=== PATIENT | male | born 1990 | race Caucasian/White ===

== ENCOUNTER 2017-06-13 16:47 | Emergency (ER) | payer OTHER ==
[2017-06-13 16:53] VITALS: BP 140/84; PULSE 97; RESP 17; O2SAT 96
--- NOTE | 2017-06-13 17:05 | EDPHY ---
General Narrative: CHIEF COMPLAINT: Left leg pain HISTORY OF PRESENT ILLNESS: Patient complains of left calf pain that started approximately 1 week ago. It is located in the left calf. Radiates up and down the leg. It is moderate to severe when ambulatory. It worsens with dorsiflexion of the left foot. Some improvement rest. No numbness or tingling. The pain does extend up into the left popliteal fossa. No redness. No edema. No warmth. No paresthesia. No paralysis. No cold sensation to the foot. He participates in triathlons and CrossFit exercise. He has been able to exercise, but limited due to the pain. He was 1st seen on Monday when the pain began to worsen. The urgent care he presented to examined him but performed no imaging or ultrasound. He did fly to [place] the week preceding the pain. No shortness of breath of any kind at any time. No other associated complaints or modifying factors. ESTABLISHED ORTHOPEDIST: None REVIEW OF SYSTEMS: Ten systems reviewed and are negative unless otherwise noted in the HPI PAST MEDICAL HISTORY: None SOCIAL HISTORY: Nonsmoker. Occasional alcohol. Works as a software programmer. FAMILY HISTORY: EXAMINATION: General Appearance: Alert, no distress Cardiovascular: Pulses normal throughout with symmetric DP pulses 2+. Symmetric PT pulses 2+. Symmetric warmth to both feet. Neurological: A&O, sensory symmetric, lower extremity strength symmetric. No footdrop Skin: Warm and dry, no rash. No erythema or cellulitis. Extremities: Tenderness of the left calf. No palpable cord. There is pain with passive dorsiflexion of the left ankle. Range of motion of lower extremities symmetric. Psychiatric: Mood and affect normal DIFFERENTIAL DIAGNOSES: Including but not limited to muscle spasm, strain, sprain, DVT, rhabdo, fracture MDM: 5:05 p.m. Left calf pain 8 days duration. Examination does not suggest DVT, but he did fly to [place] the week preceding the pain. He also participates in cross fit exercise and triathlons, thus I will proceed with DVT and rhabdomyolysis rule out. He is in no acute distress. He is neuro intact. No bony tenderness of the leg,, but he expresses concern for stress fracture, thus I have ordered an x-ray of the tib-fib. 5:55 p.m. Contacted by radiologist Dr. Hamlin. He is positive for acute DVT in the left popliteal vein, the veins of the calf. No involvement of the femoral veins. I will discuss with Dr. Reese. 6:05 p.m. I have re-evaluated the patient. After discussing with Dr. Reese, we agree that the patient is a good candidate for Xarelto. I discussed this with the patient he agrees to proceed. I reaffirmed that he has had no chest pain or shortness of breath as well. Xarelto ordered. 6:45 p.m. Coag studies are negative. CBC unremarkable. CK negative. I have re- evaluated the patient. I reaffirmed that he is comfortable with the treatment plan. We discussed pain medication. We discussed short duration of ambulation with crutches. We also discussed light activity but to refrain from returning to his vigorous exercise regimen until cleared by his primary care physician. We also discussed return to emergency department precautions for any chest pain or shortness of breath. He is stable for discharge with no chest pain at this time. SUPERVISION: This patient was independently evaluated without direct involvement of or examination by the attending physician. ED Precautions: Worsening pain. Erythema, edema, cyanosis, pallor, paresthesia or anesthesia. - Diagnostics Imaging Results: Imaging Impressions Extremity Venous Study 06/13/17 17:05 Impression: Positive deep venous thrombosis involving the left popliteal vein and calf veins. Findings and recommendations discussed with Emergency Department physician, Zen Ovalles PAC at 17:54 hour, 06/13/2017. Final report concurs with initial preliminary interpretation. Tibia/Fibula X-Ray 06/13/17 17:11 Impression: Negative for osseous abnormality. - History Smoking Status: Never smoked - Objective Vital Signs: Initial Vital Signs Temperature (C) 97.9 F 06/13/17 16:50 Heart Rate 97 06/13/17 16:50 Respiratory Rate 17 06/13/17 16:50 Blood Pressure 140/84 H 06/13/17 16:50 O2 Sat (%) 96 06/13/17 16:50 O2 Delivery Mode Room Air Allergies/Adverse Reactions: No Known Allergies Allergy (Verified 06/13/17 16:48) Home Medications: Medication Instructions Recorded Rivaroxaban [Xarelto 15mg (*)] 15 mg PO DAILY #41 tab 06/13/17 oxyCODONE HCL/ACETAMINOPHEN 1 each PO Q4-6PRN PRN #15 tablet 06/13/17 [Percocet 5-325 mg Tablet] Laboratory Results: Laboratory Results 06/13/17 17:25 06/13/17 06/13/17 06/13/17 18:10 17:59 17:25 PT 13.7 SEC SEC (12.0-15.0) INR 1.03 (0.83-1.16) APTT 29.7 SEC SEC (23.0-38.0) Sodium 142 mEq/L mEq/L (134-144) Potassium 4.2 mEq/L mEq/L (3.5-5.2) Chloride 105 mEq/L mEq/L (97-110) Carbon Dioxide 22 mEq/l mEq/l (22-31) Anion Gap 15 mEq/L mEq/L (8-16) BUN 19 mg/dL mg/dL (7-23) Creatinine 1.2 mg/dL mg/dL (0.7-1.3) Estimated GFR > 60 Glucose 111 mg/dL H mg/dL (70-100) Calcium 9.9 mg/dL mg/dL (8.5-10.4) Creatine Kinase 144 IU/L IU/L (0-224) Urine Color YELLOW Urine Appearance CLEAR Urine pH 5.0 (5.0-7.5) Ur Specific [place] 1.019 (1.002-1.030) Urine Protein NEGATIVE (NEGATIVE) Urine Ketones NEGATIVE (NEGATIVE) Urine Blood NEGATIVE (NEGATIVE) Urine Nitrate NEGATIVE (NEGATIVE) Urine Bilirubin NEGATIVE (NEGATIVE) Urine Urobilinogen NEGATIVE EU EU (0.2-1.0) Ur Leukocyte Esterase NEGATIVE (NEGATIVE) Urine RBC 1-3 /hpf /hpf (0-3) Urine WBC NONE SEEN /hpf /hpf (0-3) Ur Epithelial Cells NONE SEEN /lpf /lpf (NONE-1+) Urine Mucus TRACE /lpf /lpf (NONE-1+) Urine Glucose NEGATIVE (NEGATIVE) Medications Given: Discontinued Medications Rivaroxaban (Xarelto) 15 mg PO EDNOW ONE Stop: 06/13/17 17:58 Last Admin: 06/13/17 18:28 Dose: 15 mg Departure - Departure Disposition: Home, Routine, Self-Care Clinical Impression: Deep venous thrombosis (DVT) of left peroneal vein, Acute DVT of left tibial vein Deep venous thrombosis of left popliteal vein Qualifiers: Chronicity: acute Qualified Code(s): I82.432 - Acute embolism and thrombosis of left popliteal vein Condition: Good Instructions: Deep Venous Thrombosis (ED) Additional Instructions: 1. Light activity until seen by primary care physician 2. No massage to the leg or immobilization of the leg 3. Contact the on-call primary care physician as provided for outpatient follow- up 4. Return to emergency department for any chest pain of any kind or any shortness of breath of any kind Referrals: Wilfredo Diaz MD [[facility] [place] Primary Care Provider] - As per Instructions Prescriptions: oxyCODONE HCL/ACETAMINOPHEN [Percocet 5-325 mg Tablet] 1 each PO Q4-6PRN PRN # 15 tablet PRN Reason: Pain, Breakthrough Rivaroxaban [Xarelto 15mg (*)] 15 mg PO DAILY #41 tab
[2017-06-13 17:49] LABS: ANION GAP 15 mEq/L (8-16); CALCIUM 9.9 mg/dL (8.5-10.4); CARBON DIOXIDE 22 mEq/l (22-31); CHLORIDE 105 mEq/L (97-110); CREATININE 1.2 mg/dL (0.7-1.3); GLOMERULAR FILTRATION RATE > 60; GLUCOSE 111 mg/dL (70-100); POTASSIUM 4.2 mEq/L (3.5-5.2); SODIUM 142 mEq/L (134-144)
[2017-06-13] MEDS ORDERED: RIVAROXABAN 15 MG TAB PO ONE (17:57)
[2017-06-13 18:33] LABS: COLOR YELLOW; LEUKOCYTE ESTERASE,URINE NEGATIVE (NEGATIVE); NITRITE,URINE NEGATIVE (NEGATIVE)
[2017-06-13 18:34] LABS: MUCUS TRACE /lpf (NONE-1+)
[2017-06-13 18:37] LABS: WBC,URINE NONE SEEN /hpf (0-3)
[2017-06-13 18:40] LABS: INR 1.03 (0.83-1.16); PROTIME(PATIENT) 13.7 SEC (12.0-15.0)
[2017-06-13 18:41] LABS: APTT 29.7 SEC (23.0-38.0)
[2017-06-13 19:07] VITALS: TEMP 98.2
== END 2017-06-13 19:15 | disposition home or self-care (01) ==
DX: I82.432 Acute embolism and thrombosis of left popliteal vein (principal); I82.442 Acute embolism and thrombosis of left tibial vein; I82.492 Acute embolism and thrombosis of other specified deep vein of left lower extremity; Z79.01 Long term (current) use of anticoagulants

== ENCOUNTER 2017-06-15 09:33 | Observation (INO) | payer OTHER ==
--- NOTE | 2017-06-15 09:44 | CPEKG ---
Heart Rate: 91 RR Interval: 659 P-R Interval: 156 QRSD Interval: 82 QT Interval: 332 QTC Interval: 409 P [place]: 76 QRS [place]: 74 EKG Severity - BORDERLINE ECG - EKG Impression: SINUS RHYTHM EKG Impression: BORDERLINE T ABNORMALITIES, DIFFUSE LEADS Electronically Signed By: Surjit Burns 16-Jun-2017 20:35:27
[2017-06-15] MEDS ORDERED: NS 1,000 ML IV ONE (09:47)
--- NOTE | 2017-06-15 09:50 | EDPHY ---
General Narrative: CHIEF COMPLAINT: Chest pain HISTORY OF PRESENT ILLNESS: Patient complains of chest pain that started 25 min prior to arrival. It is retrosternal. It is worse with expiration. Minimally painful with inspiration. Minimal pain at rest. No shortness of breath. No cough or fever. I examine this patient 2 days ago diagnosed with a left lower extremity DVT from the popliteal vein down. We discussed returning to the emergency department immediately should he have any chest pain, thus he has done so. He has had no chest pain prior to this incidence that started 30 min ago. No other associated complaints or modifying factors. REVIEW OF SYSTEMS: Ten systems reviewed and are negative unless otherwise noted in the HPI PCP: Currently attempting to obtain one SPECIALISTS: None PAST MEDICAL HISTORY: None PAST SURGICAL HISTORY: Ortho SOCIAL HISTORY: Nonsmoker. 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 Airway patent Neck: Normal inspection, supple, non-tender Respiratory: Lungs are clear to auscultation. No wheezing, rhonchi or crackles. No diminishment. Cardiovascular: Regular rate and rhythm. No murmur. Intermittently tachycardic. Gastrointestinal: Abdomen is soft and nontender Neurological: A&O, nonfocal, strength symmetric Skin: Warm and dry, no rash no petechiae or purpura Extremities: Left calf tenderness unchanged from my recent examination no change in the appearance of the left leg. Psychiatric: Mood and affect normal DIFFERENTIAL DIAGNOSES: Including but not limited to PE, pleurisy, chest pain NOS, pericarditis, myocarditis MDM: 9:45 a.m. Chest pain that started 30 min ago. Patient does have a DVT of the left lower extremity from the popliteal veins down. Vital signs are intermittently tachycardic but otherwise stable. He is not hypoxic but does not hypotensive. EKG is unremarkable. I have ordered a stat CT of the chest angiography to rule out PE. I have asked the charge nurse to notify CT department that this patient should have the next CT performed. He remains on a cardiac catheterization technician in no acute distress. I have not ordered a chest x-ray as the patient will be taken over to CT scan within the next 5 min. 10:30 a.m. Notified by radiologist Dr. Velásquez. CT scan of the chest does reveal subsegmental, mild bilateral PEs. Please see the remainder of the report for further details. I will contact the hospitalist. The patient is on Xarelto and has been for 48 hr. 10:36 a.m. Patient re-evaluated. Resting comfortably. 10:45 a.m. Case discussed with hospitalist Dr. Gisele Terrell. She will admit the patient to the hospital to Dr. Walker. He is admitted in stable condition. At this time he is not requiring supplemental oxygen. He is not hypotensive. He is in no acute distress. 10:55 a.m. This was discussed with the patient, his mother, and his father all at bedside. They are agreeable with this plan. He is feeling reassured from this. SUPERVISION: Patient was evaluated and examined in conjunction with my secondary supervising physician as documented. We have both examined the patient. - Diagnostics Imaging Results: Imaging Impressions Chest/Thorax CTA 06/15/17 09:41 Impression: 1. Mild to moderate volume scattered bilateral pulmonary emboli as detailed above. Findings discussed with Zen Pettus PAC at 10:34 hour, 06/15/2017. - History Smoking Status: Never smoked - Objective Vital Signs: Initial Vital Signs Temperature (C) 97.3 F 06/15/17 09:35 Heart Rate 98 06/15/17 09:35 Respiratory Rate 18 06/15/17 09:35 Blood Pressure 160/107 H 06/15/17 09:35 O2 Sat (%) 99 06/15/17 09:35 O2 Delivery Mode Room Air Allergies/Adverse Reactions: No Known Allergies Allergy (Verified 06/15/17 09:34) Home Medications: Medication Instructions Recorded Rivaroxaban [Xarelto 15mg (*)] 15 mg PO DAILY #41 tab 06/13/17 oxyCODONE HCL/ACETAMINOPHEN 1 each PO Q4-6PRN PRN #15 tablet 06/13/17 [Percocet 5-325 mg Tablet] Laboratory Results: Laboratory Results 06/15/17 09:47 06/15/17 09:45 06/15/17 06/15/17 06/15/17 09:47 09:47 09:45 WBC 5.92 10^3/uL 10^3/uL (3.80-9.50) RBC 5.38 10^6/uL 10^6/uL (4.40-6.38) Hgb 17.2 g/dL g/dL (13.7-17.5) Hct 49.6 % % (40.0-51.0) MCV 92.2 fL fL (81.5-99.8) MCH 32.0 pg pg (27.9-34.1) MCHC 34.7 g/dL g/dL (32.4-36.7) RDW 12.1 % % (11.5-15.2) Plt Count 193 10^3/uL 10^3/uL (150-400) MPV 11.5 fL fL (8.7-11.7) Neut % (Auto) 49.0 % % (39.3-74.2) Lymph % (Auto) 38.0 % % (15.0-45.0) [place] % (Auto) 9.1 % % (4.5-13.0) Eos % (Auto) 2.9 % % (0.6-7.6) Baso % (Auto) 0.7 % % (0.3-1.7) Nucleat RBC Rel Count 0.0 % % (0.0-0.2) Absolute Neuts (auto) 2.90 10^3/uL 10^3/uL (1.70-6.50) Absolute Lymphs (auto) 2.25 10^3/uL 10^3/uL (1.00-3.00) Absolute Monos (auto) 0.54 10^3/uL 10^3/uL (0.30-0.80) Absolute Eos (auto) 0.17 10^3/uL 10^3/uL (0.03-0.40) Absolute Basos (auto) 0.04 10^3/uL 10^3/uL (0.02-0.10) Absolute Nucleated RBC 0.00 10^3/uL 10^3/uL (0-0.01) Immature Gran % 0.3 % % (0.0-1.1) Immature Gran # 0.02 10^3/uL 10^3/uL (0.00-0.10) PT 16.3 SEC H SEC (12.0-15.0) INR 1.29 H (0.83-1.16) APTT 34.3 SEC SEC (23.0-38.0) Sodium 147 mEq/L H mEq/L (134-144) Potassium 3.8 mEq/L mEq/L (3.5-5.2) Chloride 102 mEq/L mEq/L (97-110) Carbon Dioxide 27 mEq/l mEq/l (22-31) Anion Gap 18 mEq/L H mEq/L (8-16) BUN 17 mg/dL mg/dL (7-23) Creatinine 1.2 mg/dL mg/dL (0.7-1.3) Estimated GFR > 60 Glucose 76 mg/dL mg/dL (70-100) Calcium 10.6 mg/dL H mg/dL (8.5-10.4) Troponin I < 0.012 ng/mL ng/mL (0.000-0.034) Lipase 97 IU/L IU/L (23-300) Medications Given: Discontinued Medications Sodium Chloride (Ns) 1,000 mls @ 0 mls/hr IV EDNOW ONE; Wide Open PRN Reason: Protocol Stop: 06/15/17 09:48 Last Admin: 06/15/17 10:10 Dose: 1,000 mls Lorazepam (Ativan Injection) 1 mg IVP EDNOW ONE Stop: 06/15/17 09:57 Last Admin: 06/15/17 10:12 Dose: 1 mg Departure - Departure Disposition: [facility] Acute Clinical Impression: Pulmonary embolism, bilateral, Acute chest pain Left leg DVT Qualifiers: Affected thrombotic vein of extremity: popliteal Chronicity: acute Qualified Code(s): I82.432 - Acute embolism and thrombosis of left popliteal vein Condition: Good Referrals: NONE *PRIMARY CARE P,. [Primary Care Provider] - As per Instructions
[2017-06-15] MEDS ORDERED: IOPAMIDOL (ISOVUE 370) 100 ML BTL IV ONE (09:53)
[2017-06-15 09:55] LABS: % IMMATURE GRANULYOCYTES 0.3 % (0.0-1.1); ABSOLUTE IMMATURE GRANULOCYTES 0.02 10^3/uL (0.00-0.10); ADD DIFF? NO; ADD MORPH? NO; ADD SCAN? NO; ATYPICAL LYMPHOCYTE FLAG 20 (0-99); FRAGMENT RBC FLAG 0 (0-99); HEMATOCRIT 49.6 % (40.0-51.0); HEMOGLOBIN 17.2 g/dL (13.7-17.5); LEFT SHIFT FLG 0 (0-99); LIPEMIA HEMOLYSIS FLAG 90 (0-99); MEAN CELL HEMOGLOBIN CONCENTR. 34.7 g/dL (32.4-36.7); MEAN CELL VOLUME 92.2 fL (81.5-99.8); MEAN PLATELET VOLUME 11.5 fL (8.7-11.7); PLATELET CLUMPS FLAG 20 (0-99); PLATELET COUNT 193 10^3/uL (150-400); RED BLOOD CELL COUNT 5.38 10^6/uL (4.40-6.38); RED CELL DISTRIBUTION WIDTH 12.1 % (11.5-15.2)
[2017-06-15] MEDS ORDERED: LORazepam 2 MG/ML INJ IVP ONE (09:56)
[2017-06-15 10:02] LABS: INR 1.29 (0.83-1.16); PROTIME(PATIENT) 16.3 SEC (12.0-15.0)
[2017-06-15 10:03] LABS: APTT 34.3 SEC (23.0-38.0)
[2017-06-15 10:16] LABS: ANION GAP 18 mEq/L (8-16); CALCIUM 10.6 mg/dL (8.5-10.4); CARBON DIOXIDE 27 mEq/l (22-31); CHLORIDE 102 mEq/L (97-110); CREATININE 1.2 mg/dL (0.7-1.3); GLOMERULAR FILTRATION RATE > 60; GLUCOSE 76 mg/dL (70-100); POTASSIUM 3.8 mEq/L (3.5-5.2); SODIUM 147 mEq/L (134-144)
[2017-06-15 10:28] LABS: TROPONIN I < 0.012 ng/mL (0.000-0.034)
[2017-06-15] MEDS ORDERED: ONDANSETRON DISINTEGRATING 4 MG TAB PO PRN (11:08)
[2017-06-15] MEDS ORDERED: ONDANSETRON 4 MG/2 ML VIAL IVP PRN (11:08)
[2017-06-15] MEDS ORDERED: ACETAMINOPHEN 325 MG TAB PO PRN (11:08)
[2017-06-15] MEDS ORDERED: oxyCODONE IR 5 MG TAB PO PRN (11:13)
[2017-06-15] MEDS ORDERED: POLYETHYLENE GLYCOL 3350 17 GM PKT PO PRN (11:16)
[2017-06-15] MEDS ORDERED: LACTULOSE 20 GM/30 ML UDCUP PO PRN (11:16)
[2017-06-15] MEDS ORDERED: MAGNESIUM HYDROXIDE 30 ML UDCUP PO PRN (11:16)
[2017-06-15] MEDS ORDERED: BISACODYL 10 MG SUPP PR PRN (11:16)
[2017-06-15] MEDS ORDERED: LORazepam 0.5 MG TAB PO PRN (17:38)
[2017-06-15] MEDS ORDERED: OXYCODONE/APAP 5/325 TAB PO PRN (17:39)
--- NOTE | 2017-06-15 17:43 | PDGENHP ---
History and Physical - Chief Complaint Acute chest pain - History of Present Illness 27-year-old male presents with acute chest pain characterized as sharp sudden pain located retrosternally with onset of symptoms at 9:00 a.m. on the day of presentation and duration persistent thereafter. The patient reports that the symptoms were preceded by some associated anxiety and frustration regarding his recent diagnosis of left lower extremity DVT, and the way it was affecting his mobility and resulting in pain. The patient had been utilizing Percocet to alleviate the pain, but he reports that the pain has been mostly constant during the daytime and with activity. He had been wearing a compression stocking since his diagnosis 2 days ago, and he had been also using a foam roller in his bilateral thighs each morning. The patient reports that he had received an incorrect prescription of Xarelto from our emergency department, dosing 15 mg once daily, and this was identified when the patient establish primary care the following day. He did not take an additional dose to catch up , and consequently, he took 3 doses during a period of time in which he should have taken 4. History Information - Allergies/Home Medication List Allergies/Adverse Reactions: No Known Allergies Allergy (Verified 06/15/17 09:34) Home Medications: Rivaroxaban [Xarelto 15mg (*)] 15 mg PO BID 06/15/17 [Last Taken 06/15/17] I have personally reviewed and updated: family history, medical history, social history, surgical history - Past Medical History DVT (Diagnosis 2 days prior left lower extremity) Additional medical history: Untreated anxiety - Surgical History Reports: no pertinent surgical hx - Family History Additional family history: No family history of venous thromboembolism - Social History Smoking Status: Never smoked Alcohol Use: Occasionally Drug Use: None Additional social history: Very physically active, triathlete during the summer , enjoys skiing in weightlifting during the winter, recently return from a flight to [place] during Review of Systems Review of Systems: ROS: 10pt was reviewed & negative except for what was stated in HPI & below Cardiac: Reports: chest pain Muscolosketal: Reports: other (Left calf pain) Neurological: Reports: anxiety Physical Exam Physical Exam: Temp Pulse Resp BP Pulse Ox 36.8 C 83 18 127/71 H 91 L 06/15/17 16:38 06/15/17 16:38 06/15/17 16:38 06/15/17 16:38 06/15/17 16:38 Constitutional: no apparent distress, appears nourished, not in pain, other ( Muscular build) Eyes: PERRL, anicteric sclera, EOMI Ears, Nose, Mouth, Throat: moist mucous membranes, hearing normal, ears appear normal, no oral mucosal ulcers Cardiovascular: regular rate and rhythym, no murmur, rub, or gallop, edema ( Trace left lower extremity edema) Respiratory: no respiratory distress, no rales or rhonchi, clear to auscultation Gastrointestinal: normoactive bowel sounds, soft, non-tender abdomen, no palpable masses Skin: other (No erythema or induration over his left calf) Musculoskeletal: other (Asymmetric calves, left greater than right, full range of motion left ankle, full range of motion left knee) Neurologic: AAOx3, sensation intact bilaterally Psychiatric: interacting appropriately, not encephalopathic, thought process linear, anxious, No agitated Lab Data & Imaging Review 06/15/17 09:47 06/15/17 09:45 WBC 5.92 10^3/uL (3.80-9.50) 06/15/17 09:47 RBC 5.38 10^6/uL (4.40-6.38) 06/15/17 09:47 Hgb 17.2 g/dL (13.7-17.5) 06/15/17 09:47 Hct 49.6 % (40.0-51.0) 06/15/17 09:47 MCV 92.2 fL (81.5-99.8) 06/15/17 09:47 MCH 32.0 pg (27.9-34.1) 06/15/17 09:47 MCHC 34.7 g/dL (32.4-36.7) 06/15/17 09:47 RDW 12.1 % (11.5-15.2) 06/15/17 09:47 Plt Count 193 10^3/uL (150-400) 06/15/17 09:47 MPV 11.5 fL (8.7-11.7) 06/15/17 09:47 Neut % (Auto) 49.0 % (39.3-74.2) 06/15/17 09:47 Lymph % (Auto) 38.0 % (15.0-45.0) 06/15/17 09:47 [place] % (Auto) 9.1 % (4.5-13.0) 06/15/17 09:47 Eos % (Auto) 2.9 % (0.6-7.6) 06/15/17 09:47 Baso % (Auto) 0.7 % (0.3-1.7) 06/15/17 09:47 Nucleat RBC Rel Count 0.0 % (0.0-0.2) 06/15/17 09:47 Absolute Neuts (auto) 2.90 10^3/uL (1.70-6.50) 06/15/17 09:47 Absolute Lymphs (auto) 2.25 10^3/uL (1.00-3.00) 06/15/17 09:47 Absolute Monos (auto) 0.54 10^3/uL (0.30-0.80) 06/15/17 09:47 Absolute Eos (auto) 0.17 10^3/uL (0.03-0.40) 06/15/17 09:47 Absolute Basos (auto) 0.04 10^3/uL (0.02-0.10) 06/15/17 09:47 Absolute Nucleated RBC 0.00 10^3/uL (0-0.01) 06/15/17 09:47 Immature Gran % 0.3 % (0.0-1.1) 06/15/17 09:47 Immature Gran # 0.02 10^3/uL (0.00-0.10) 06/15/17 09:47 PT 16.3 SEC (12.0-15.0) H 06/15/17 09:47 INR 1.29 (0.83-1.16) H 06/15/17 09:47 APTT 34.3 SEC (23.0-38.0) 06/15/17 09:47 Sodium 147 mEq/L (134-144) H 06/15/17 09:45 Potassium 3.8 mEq/L (3.5-5.2) 06/15/17 09:45 Chloride 102 mEq/L (97-110) 06/15/17 09:45 Carbon Dioxide 27 mEq/l (22-31) 06/15/17 09:45 Anion Gap 18 mEq/L (8-16) H 06/15/17 09:45 BUN 17 mg/dL (7-23) 06/15/17 09:45 Creatinine 1.2 mg/dL (0.7-1.3) 06/15/17 09:45 Estimated GFR > 60 12 09:45 Glucose 76 mg/dL (70-100) 06/15/17 09:45 Calcium 10.6 mg/dL (8.5-10.4) H 06/15/17 09:45 Troponin I < 0.012 ng/mL (0.000-0.034) 06/15/17 09:45 Lipase 97 IU/L (23-300) 06/15/17 09:45 Visualized and Interpreted EKG results: Yes EKG Interpretation: Positive for: other (Normal sinus rhythm with T-wave inversion in lead 2 and 3) Assessment & Plan Assessment: 27-year-old male presents with acute pulmonary embolism in the setting of recent diagnosis DVT Plan: 1. Pulmonary embolism. Acute, present on admission, unclear whether these occurred at the same time of his deep venous thrombosis this past week or whether the acute chest pain the patient experienced was secondary to acute distal embolization in the setting of subtherapeutic dosing of Xarelto as well as physical manipulation of his left lower extremity -I believe it is unlikely that this represents a true Xarelto failure, as the patient has accidentally only taken 3 doses during a period in which the therapeutic dosing would have been 4 -that being said, although the patient is pulmonary embolism severity index score is low, it is impossible to predict whether this is 1 of the rare situations of a Xarelto failure and the patient should be monitored overnight on pulse oximeter and telemetry to ensure that he does not experience acute worsening of his pulmonary embolism -the patient has chosen to continue with Xarelto dosing, 15 mg twice daily -monitor on telemetry, monitor on pulse ox -counseled the patient and his parents extensively that he should avoid direct manipulation of his left lower extremity for the next couple weeks to avoid potentiating any further distal embolization 2. Deep venous thrombosis. Present on admission, reviewed outside records including emergency department report by Zen lundberg and Dr. Roni Reese from 06/13/2017, describes the patient was prescribed Xarelto for left lower extremity deep venous thrombosis as well as as needed Percocet -okay to continue compression stocking, avoid direct manipulation and exertional activity for the next couple weeks -counseled the patient to utilize as needed Tylenol during the day, as needed Percocet at night for pain control and to elevate the affected area -this is most likely a provoked deep venous thrombosis in the setting of recent airline travel, and the patient's duration of anticoagulation will most likely be 3 months -he has a primary care provider for follow-up 3. Anxiety. Likely untreated or under treated anxiety, unclear whether this is true mood disorder, patient is experiencing significant situational anxiety provoked by above -dose as needed Ativan, will provide limited supply time discharge -recommend the patient continue working with his primary care provider and seek outpatient mental health support if necessary Diet. Regular Prophylaxis. High risk patient, currently systemically anticoagulated Code. Full Disposition. Anticipated discharge 06/16/2017, pending stabilization of conditions outlined above. Spent greater than 70 min with the patient and his family, greater than 50% of the time spent counseling regarding the issues outlined above, as well as coordinating his care.
[2017-06-15] MEDS: RIVAROXABAN 15 MG TAB PO SCH (19:08)
[2017-06-15] MEDS: SENNOSIDES/DOCUSATE SODIUM TAB PO SCH (19:10)
[2017-06-15] MEDS ORDERED: TEARS/DEXTRAN 70/HYPROMELLOSE 15 ML OPHT.BTL EACHEYE PRN (19:26)
[2017-06-15] MEDS: OXYCODONE/APAP 5/325 TAB PO PRN (20:10)
[2017-06-16] MEDS: OXYCODONE/APAP 5/325 TAB PO PRN (03:41)
[2017-06-16 04:15] VITALS: TEMP 97.7
[2017-06-16 04:28] LABS: ALANINE AMINOTRANSFERASE 37 IU/L (21-72); ALBUMIN 3.9 g/dL (3.5-5.0); ALKALINE PHOSPHATASE 53 IU/L (38-126); ANION GAP 12 mEq/L (8-16); ASPARTATE AMINOTRANSFERASE 29 IU/L (17-59); BILIRUBIN,TOTAL 0.3 mg/dL (0.1-1.4); CALCIUM 9.5 mg/dL (8.5-10.4); CARBON DIOXIDE 25 mEq/l (22-31); CHLORIDE 107 mEq/L (97-110); CREATININE 1.2 mg/dL (0.7-1.3); GLOMERULAR FILTRATION RATE > 60; GLUCOSE 101 mg/dL (70-100); MAGNESIUM 1.8 mg/dL (1.6-2.3); POTASSIUM 4.2 mEq/L (3.5-5.2); SODIUM 144 mEq/L (134-144); TOTAL PROTEIN 6.8 g/dL (6.3-8.2)
[2017-06-16] MEDS: SENNOSIDES/DOCUSATE SODIUM TAB PO SCH (07:28)
[2017-06-16] MEDS: RIVAROXABAN 15 MG TAB PO SCH (07:28)
[2017-06-16 07:49] VITALS: BP 115/78; PULSE 68; RESP 16; O2SAT 97
--- NOTE | 2017-06-16 09:28 | ASMTCASEMG ---
Living Arrangements What is your living Answers: Alone arrangement? Who do you live with? Type Of Residence What kind of residence do Answers: Apartment you live in? Discharge Plan Comments Coordination Status Comments Notes: Pt is a 27 y/o man admitted for bilateral sub segmental PE. Pt was recently dx with left lower extremity DVT. CM met w/ pt and mother for dispo planning. CM provided psychology today resources. Pt reports that he has a supportive family. Anticipates that pt will d/c independent when medically stable. CM available for needs. Plan: Independent Date Signed: 06/16/2017 09:27 AM Electronically Signed By:SHASHI Phillips
[2017-06-16] MEDS ORDERED: traMADol 50 MG TAB PO PRN (09:42)
--- NOTE | 2017-06-16 16:48 | ASDISCHSUM ---
Discharge Information Plan Status:Home with No Needs Medically Cleared to Leave:06/15/2017 Discharge Date:06/16/2017 10:43 AM CM D/C Disposition: ADT D/C Disposition:Home, Routine, Self-Care Projected Discharge Date:06/16/2017 12:00 AM Transportation at D/C: Discharge Delay Reason: Follow-Up Date:06/16/2017 12:00 AM Discharge Slot: Final Diagnosis: Placement Information Patient Contact Information Contact Name:BEV Relationship:Mother Address: Home Phone: City: [facility] Phone: [facility] Code:[place] Email: Financial Information Financial Class:ki work Primary Plan Desc:[facility] H[facility] OPEN ACC LOCAL Primary Plan Number:[id number] Secondary Plan Desc: Secondary Plan Number: Assessment Information LACE LACE Acuity / Level of Care Answers: Was the patient admitted to hospital via the emergency department? Yes: Emergency dept visits in Answers: 2 last 6 months Score: 5 Date Signed: 06/15/2017 12:45 PM Electronically Signed By:Chitra Wheatley RN [facility] Initial CM Assessment Living Arrangements What is your living Answers: Alone arrangement? Who do you live with? Type Of Residence What kind of residence do Answers: Apartment you live in? Discharge Plan Comments Coordination Status Comments Notes: Pt is a 27 y/o man admitted for bilateral sub segmental PE. Pt was recently dx with left lower extremity DVT. CM met w/ pt and mother for dispo planning. CM provided psychology today resources. Pt reports that he has a supportive family. Anticipates that pt will d/c independent when medically stable. CM available for needs. Plan: Independent Date Signed: 06/16/2017 09:27 AM Electronically Signed By:SHASHI Phillips Intervention Information
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
== END 2017-06-16 10:43 | disposition home or self-care (01) ==
LOC: F2W 14:04
PROVIDERS: ADMIT Internal Medicine; ATTEND Internal Medicine
DX: I26.99 Other pulmonary embolism without acute cor pulmonale (principal); I82.402 Acute embolism and thrombosis of unspecified deep veins of left lower extremity; F41.9 Anxiety disorder, unspecified
CPT/HCPCS: 71275; 93005; G0378; 82947-QW; 96374; J2060; Q9967

== ENCOUNTER → 2017-09-29 | Outpatient (CLI) | payer OTHER | LOC: FIMAGING 13:52 | PROVIDERS: ATTEND Family Medicine | DX: Z13.6 Encounter for screening for cardiovascular disorders (principal); Z79.01 Long term (current) use of anticoagulants ==

== ENCOUNTER 2018-03-18 11:58 | Emergency (ER) | payer OTHER ==
[2018-03-18] MEDS ORDERED: IBUPROFEN 800 MG TAB PO ONE (12:45)
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
[2018-03-18 14:35] VITALS: BP 130/76
== END 2018-03-18 14:33 | disposition home or self-care (01) ==
DX: M25.512 Pain in left shoulder (principal); M25.531 Pain in right wrist; V18.0XXA Pedal cycle driver injured in noncollision transport accident in nontraffic accident, initial encounter; Y92.9 Unspecified place or not applicable
CPT/HCPCS: A4565